=== PATIENT | male | born 1950 | race Asian ===

== ENCOUNTER 2017-10-28 20:58 | Emergency (ER) | payer MEDICARE, OTHER ==
[2017-10-29] MEDS: HYDROCODONE/APAP (5/325) TAB PO ×2 (01:28→03:22)
== END 2017-10-29 03:43 | disposition home or self-care (01) ==
LOC: E/R 10-29 03:43
DX: S20.229A Contusion of unspecified back wall of thorax, initial encounter (principal); S16.1XXA Strain of muscle, fascia and tendon at neck level, initial encounter; S59.911A Unspecified injury of right forearm, initial encounter; R42 Dizziness and giddiness; W14.XXXA Fall from tree, initial encounter; Y92.9 Unspecified place or not applicable
CPT/HCPCS: 70450; 71045; 72125; 72128; 72131; 73030; 99285-25

== ENCOUNTER 2018-12-27 17:30 | Emergency (ER) | payer OTHER, MEDICAID, MEDICARE | END 2018-12-27 18:38 | disposition home or self-care (01) | LOC: E/R 17:30 | DX: L30.9 Dermatitis, unspecified (principal) | CPT/HCPCS: 99283 ==

== ENCOUNTER 2019-01-15 10:10 | Emergency (ER) | payer OTHER, MEDICAID | END 2019-01-15 11:14 | disposition home or self-care (01) | LOC: FTE 10:10 | DX: R21 Rash and other nonspecific skin eruption (principal) | CPT/HCPCS: 99282 ==